=== PATIENT | female | born 1945 | race Caucasian/White ===

== ENCOUNTER 2025-04-07 10:05 | Emergency (ER) | payer MEDICARE ==
[~2025-04-07] VITALS: Ht 160 cm; Wt 63.6 kg
[2025-04-07 11:09] LABS: MEAN PLATELET VOLUME 8.9 FL (7.4-10.4); RED CELL DISTRIBUTION WIDTH 16.2 % (11.5-14.5)
[2025-04-07 11:13] LABS: LEUKOCYTE ESTERASE ,URINE NEGATIVE (Neg); NITRITES, URINE NEGATIVE (Neg); OCCULT BLOOD,URINE NEGATIVE (Neg)
[2025-04-07 11:24] LABS: UA COLLECTION TYPE CLN CATCH MIDSTREAM
[2025-04-07 11:25] LABS: CREATININE 1.60 MG/DL (0.40-0.90); TOTAL CARBON DIOXIDE 29.0 MMOL/L (24-32); eCRCL 24 ML/MIN; eGFR 31 ML/MIN
--- NOTE | 2025-04-07 11:42 | Physician Documentation ---
History of Present Illness ~ Chief Complaint: Vomiting Stated Complaint: ABD PAIN Time Seen by MD: 14:18 HPI Patient is a 79-year-old female with complaints of recent diagnosis of mesenteric ischemia and states she has been having significant difficulty eating and keeping down any food and sometimes liquid for over a month. Patient states she feels very weak and states she is getting worse. Patient did set up appointment with Dr. Guadalupe on the 17 of April but feels her situation is rapidly worsening in his not sure she can wait that long. She has no other concern or complaint at this time. 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 Physical Exam Vital Signs: Temperature: 97.3, Source: Oral, Heart Rate: 94, Respiratory Rate: 18, BP: 146/62, Pulse Oximetry: 96, Weight: 63.600 Oxygen Flow Rate: 0 Physical Exam General: Alert, no apparent distress. Respiratory: Lungs clear, no respiratory distress. Gastrointestinal: Soft, nontender, nondistended. Bowels sounds present. Neurologic: Oriented x4. Psychiatric: Normal mood and affect. Skin: Normal color, warm and dry. No edema, no ecchymosis. Progress Results/Orders Results/Orders Completed Orders - PRINCESS CEJA VOLUNTEER SPECIALIST [place] (04/07/25 14:46) CK (04/07/25 14:54) Vital Signs 04/07/25 04/07/25 04/07/25 04/07/25 10:11 14:46 14:59 16:14 Temp 97.3 97.3 97.3 Pulse 94 78 82 Resp 18 18 22 B/P (MAP) 146/62 155/61 (92) 154/69 (97) Pulse Ox 96 99 95 O2 Flow Rate 0 0 0 Laboratory Tests Test 04/07/25 10:30 04/07/25 10:42 04/07/25 16:19 Urine Specimen Description Cln catch midstream Urine Color Yellow Urine Clarity Clear Urine pH 6.0 Urine Specific [place] 1.010 Urine Protein Negative Urine Glucose (UA) Negative Urine Ketones Negative Urine Occult Blood Negative Urine Nitrite Negative Urine Bilirubin Negative Urine Urobilinogen 0.2 Urine Leukocyte Esterase Negative Urine Culture Indicated Not ind Volume Urine Centrifuged 10 ml Urine Comment White Blood Count 13.4 H Red Blood Count 4.74 Hemoglobin 11.5 L Hematocrit 36.6 Mean Corpuscular Volume 77.3 L Mean Corpuscular Hemoglobin 24.4 L Mean Corpuscular Hemoglobin Concent 31.5 L Red Cell Distribution Width 16.2 H Platelet Count 398 Mean Platelet Volume 8.9 Neutrophils (%) (Auto) 46.5 Lymphocytes (%) (Auto) 39.3 Monocytes (%) (Auto) 13.2 H Eosinophils (%) (Auto) 0.4 Basophils (%) (Auto) 0.6 Neutrophils # (Auto) 6.2 Lymphocytes # (Auto) 5.3 H Monocytes # (Auto) 1.8 H Eosinophils # (Auto) 0.1 Basophils # (Auto) 0.1 CBC Comment Sodium Level 137 Potassium Level 4.1 Chloride Level 100 Carbon Dioxide Level 29.0 Anion Gap 8 Blood Urea Nitrogen 26 H Creatinine 1.60 H Estimated GFR/1.73 m2 31 BUN/Creatinine Ratio 16.3 Glucose Level 105 H Calcium Level 9.3 Total Bilirubin 0.3 Aspartate Amino Transf (AST/SGOT) 37 Alanine Aminotransferase (ALT/SGPT) 17 Alkaline Phosphatase 104 Total Protein 7.3 Albumin 3.0 L Globulin 4.3 Albumin/Globulin Ratio 0.7 L Lipase 31 Chemistry Comments Lactic Acid Level 1.9 Total Creatine Kinase 41 Medical Decision Making Findings Patient's records were requested from [facility]. Imaging was obtained. Dr. Rivers, the vascular Surgeon viewed the images and was consulted regarding the Pt's status. Consulted with ED attending. It was agreed that the patient does not meet criteria for emergency surgery. However it is recommended that she obtain a referral from a primary care in order to see a vascular surgeon in the outpatient setting for further evaluation. Diff Dx GI Bleed:Consideration: Include: AE fistula, Angiodysplasia, Bleeding diathesis, Blood loss anemia, Carcinoma, Diverticulosis, Diverticulitis, Esophageal varicies, Esophagitis, Gastritis, Gastroenteritis, Inflammatory BD, Jessika-Varner syndrome, Meckel's diverticulum, PUD, Other Departure Disposition: 01 HOME / SELF CARE / HOMELESS Impression: Primary Impression: Vomiting Condition: Stable Discharge Instructions: Nausea and Vomiting, Adult Additional Instructions: He had to obtain a referral from primary care due to go see a vascular surgeon for further evaluation of your established mesenteric stenosis. I sent you home with medication to treat her nausea vomiting Referrals: NO PRIMARY CARE PROVIDER (PCP) Prescriptions ONDANSETRON ODT 4mg tablet (ONDANSETRON ODT) 4 Mg Tab.rapdis 1 TAB PO Q6H PRN PRN for nausea/vomiting for 4 Days, #16 TAB 0 Refills Prov: PRINCESS CEJA NP 04/07/25 Education Educated: Patient Educated regarding: diagnosis Signature Scribe Signature: h Attestation: Scribed for Princess Ceja Call Specialist by Princess Ceja - [place] . 04/07/25 16:45 JAMISON DICKSON PAC Apr 07, 2025 11:42 PRINCESS CEJA NP Apr 07, 2025 16:44
[2025-04-07 16:14] VITALS: TEMP 97.3
[2025-04-07] MEDS ORDERED: ONDA-243 PO (16:52)
[2025-04-07 17:51] VITALS: BP 165/67; PULSE 99; RESP 18; O2SAT 94
== END 2025-04-07 18:00 | disposition home or self-care (01) ==
LOC: ER 10:06
DX: R11.10 Vomiting, unspecified (principal); Z88.8 Allergy status to other drugs, medicaments and biological substances
CPT/HCPCS: 36415; 80053; 81003; 82550; 83605; 83690; 85025; 99283